=== PATIENT | female | born 1970 | race Caucasian/White ===

== ENCOUNTER → 2019-02-05 | Outpatient (CLI) | payer BC ==
[~2019-02-05] MED LIST: CARVEDILOL6.25 MG PO; CATAPRES-TTS 31 EACH TRANSDERM; CIPRO500 MG PO; CIPROFLOXACIN500 M1 PO; COREG6.25 MG PO; CYMBALTA60 MG PO; EFFEXOR75 MG PO; ESTRADIOL 1 MG T1 M1 PO; FLEXERIL PO; FLOMAX0.4 MG PO; HYDROCHLOROTHIA25 M2 PO; LISINOPRIL20 MG PO; NAPROSYN500 MG PO; NEXIUM40 MG PO; NORCO 5-325 TA1 EAC1 PO; NORCO 5-325 TA1 EACH PO; NORVASC2.5 MG PO; PERCOCET 5-3251 EACH PO; PHENAZOPYRIDIN200 M2 PO; TAMSULOSIN HCL0.4 MG PO; XANAX 0.25 MG0.25 MG PO; ZESTORETIC 20-1 EAC3 PO; ZOFRAN ODT4 MG PO
== END ==
LOC: M.RAD 14:56
DX: Z12.31 Encounter for screening mammogram for malignant neoplasm of breast (principal)

== ENCOUNTER 2019-12-14 05:45 | Inpatient (IN) | payer BC ==
[~2019-12-14] VITALS: Ht 162.6 cm; Wt 98.9 kg
--- NOTE | ~2019-12-14 | OP ---
[address] [address] OPERATIVE REPORT Name: DARLENE MONIQUE Room: [address] IN M.R.#: [id number] Admission: 12/14/19 Attend Phys: Dell Felipe MD Discharge: Date of : 68 Report #: [id number] THIS REPORT FOR: //name// cc: Mirella Anderson Maggie M. DO THIS REPORT FOR: //name// CC: Dell Anderson DATE OF SERVICE: 12/15/2019 UROLOGY OPERATIVE NOTE PREOPERATIVE DIAGNOSIS: Left nephrolithiasis. POSTOPERATIVE DIAGNOSIS: Left nephrolithiasis. PROCEDURES PERFORMED: 1. Cystoscopy. 2. Left retrograde pyelogram. 3. Left ureteroscopy with laser lithotripsy and stone basket extraction. 4. Left ureteral stent placement. STAFF: Evgeny Martinez MD COMPLICATIONS: None. DRAINS: One 6 x 26 left ureteral stent. SPECIMENS: Left ureteral stone. ESTIMATED BLOOD LOSS: None. INDICATIONS FOR PROCEDURE: The patient is a 49-year-old female with a history of nephrocalcinosis and ureteral stones. She presented to [facility] yesterday with left-sided flank pain, found to have approximately 6 mm left UVJ stone with proximal hydronephrosis. After thorough discussion, decision was made to proceed with ureteroscopy. DESCRIPTION OF PROCEDURE: On 12/15/2019, after consent was obtained, the patient was taken to the operating room and placed in supine position. She was then placed under general anesthesia. She received preoperative IV Rocephin for antibiotic coverage. She was then placed in dorsal lithotomy and her genitals were prepped and draped in normal sterile fashion. We began the procedure by inserting a 22.5-Brazilian cystoscope transurethrally without [place] [address] OPERATIVE REPORT Name: DARLENE MONIQUE Room: [address] IN [facility]#: [id number] Admission: 12/14/19 Attend Phys: Dell Felipe MD Discharge: Date of : 68 Report #: [id number] in the bladder, I identified the left ureteral orifice, which was then cannulated with a Sensor wire. This wire was passed up the upper pole under fluoroscopic guidance. I then went through the cystoscope and inserted the semirigid ureteroscope. I was able to easily pass this up alongside the sensor wire into the distal ureter where I identified the stone. A 365 micron laser fiber was utilized to break up into four smaller fragments. A 1.9 nitinol basket was utilized to evacuate the ureter of all stone burden. I made one final pass of the ureteroscope up to the level of the UPJ. There was no evidence of any further stone burden and/or injury. At this point, I withdrew the ureteroscope. I placed a 5-Brazilian open-ended stent over the sensor wire. Retrograde pyelogram demonstrated a mildly dilated collecting system without extravasation. Sensor wire was then replaced. I selected a 6 x 26 stent which was passed up the upper pole under fluoroscopic guidance, had a good coil in the urinary bladder under direct visual guidance. The patient's bladder was emptied. She was awakened from anesthesia. By: [id number] Martinez MD /bettye
[2019-12-14 05:55] VITALS: BP 225/119
[2019-12-14 06:22] LABS: URINE BILIRUBIN NEGATIVE (Negative); URINE BLOOD TRACE (Negative); URINE CLARITY CLEAR; URINE COLOR YELLOW; URINE GLUCOSE-RANDOM NEGATIVE (Negative); URINE KETONES NEGATIVE (Negative); URINE LEUKOCYTES-REFLEX 1+ (Negative); URINE NITRITE-REFLEX NEGATIVE (Negative); URINE PROTEIN NEGATIVE (Negative); URINE UROBILINOGEN 0.2 E.U./dl (0.2-1.0)
[2019-12-14 06:45] LABS: CASTS None Seen /LPF (None Seen); CRYSTALS None Seen /LPF (None Seen); SQUAMOUS 0-3 Few /LPF (0-3); URINE RBC 0-2 Rare /HPF (0-2); URINE WBC-REFLEX 0-5 Rare /HPF (0-5)
[2019-12-14 07:03] LABS: HEMATOCRIT 38.2 % (37.0-47.0); HEMOGLOBIN 13.2 gm/dL (12.0-15.0); MCH 30.5 pg (26.0-34.0); MCHC 34.6 g/dL (28.0-37.0); MPV 7.5 fl. (7.2-11.1); NUCLEATED RBCS 0 /100WBC; PLATELET COUNT* 286 thou/uL (150-400); RBC 4.34 mil/uL (4.20-5.00); RDW-CV 13.1 % (10.5-14.5); WBC 8.9 thou/uL (4.0-11.0)
[2019-12-14 07:13] LABS: CALCIUM 9.2 mg/dL (8.5-10.1); CREATININE 1.1 mg/dL (0.6-1.3); POTASSIUM 4.5 mmol/L (3.5-5.1)
[2019-12-14 07:18] LABS: ALBUMIN 3.4 g/dL (3.4-5.0); TOTAL BILIRUBIN 0.4 mg/dL (<0.1-1.0)
[2019-12-14 07:29] LABS: ABSOLUTE LYMPHOCYTES 0.6 thou/uL (0.8-5.3); ABSOLUTE MONOCYTES 0.1 thou/uL (0.0-1.2); ABSOLUTE NEUTROPHILS 8.2 thou/uL (1.6-8.1); PLATELET ESTIMATE ADEQUATE
[2019-12-14 10:32] VITALS: BP 166/103
[2019-12-14 10:40] VITALS: BP 158/89
--- NOTE | 2019-12-14 17:20 | NUR ---
ASSUMED CARE ODF PATIENT AT APPROX 0730. ALERT AND ORIENTED X4. ASSESSMENT COMPLETED AND CHARTED. VSS ON ROOM AIR. NO COMPLAINTS OF PAIN OR NAUSEA THIS SHIFT. FLUIDS INFUSED ORDERED. TYLENOL GIVEN FOR LOW GRADE TEMP. STRAINING URINE TO SEE IF PATIENT PASSES STONE. PATIENT UP AD GARETT IN THE ROOM. CALL LIGHT WITHIN REACH. HOURLY ROUNDS COMPLETED. WILL CONTINUE WITH PLAN OF CARE.
[2019-12-14 19:45] VITALS: BP 104/62
[2019-12-15 03:53] LABS: CALCIUM 7.3 mg/dL (8.5-10.1); CREATININE 1.2 mg/dL (0.6-1.3); POTASSIUM 3.7 mmol/L (3.5-5.1)
[2019-12-15 03:56] LABS: HEMATOCRIT 31.5 % (37.0-47.0); MCH 30.2 pg (26.0-34.0); MCHC 34.5 g/dL (28.0-37.0); MCV 87.4 fL (80.0-100.0); MPV 8.2 fl. (7.2-11.1); NUCLEATED RBCS 0 /100WBC; PLATELET COUNT* 262 thou/uL (150-400); RDW-CV 13.6 % (10.5-14.5); WBC 17.9 thou/uL (4.0-11.0)
[2019-12-15 04:28] LABS: HEMOGLOBIN 10.9 gm/dL (12.0-15.0)
--- NOTE | 2019-12-15 04:36 | NUR ---
ASSUMED CARE OF PT 12/14/19 AT APPROX 1915, PT A&OX4, VSS ON ROOM AIR - PT PLACED ON 2L O2 AT APPROX 0200 D/T O2 SAT <90% DURING SLEEP, URINE BEING STRAINED FOR STONE, NO COMPLAINTS OF NAUSEA THIS SHIFT, PT REPORTING MILD TO MOD PAIN - PAIN MEDS REFUSED, PT NPO SINCE MIDNIGHT. ASSESSMENTS AND HOURLY ROUNDINGS COMPLETED. WILL CONTINUE TO MONITOR.
[2019-12-15 06:48] VITALS: BP 104/62
[2019-12-15 07:04] VITALS: BP 146/87
[2019-12-15 07:26] LABS: ABSOLUTE EOSINOPHILS 0.9 thou/uL (0.0-0.7); ABSOLUTE MONOCYTES 1.3 thou/uL (0.0-1.2); ABSOLUTE NEUTROPHILS 13.8 thou/uL (1.6-8.1); PLATELET ESTIMATE ADEQUATE
[2019-12-15 07:30] VITALS: BP 172/97
[2019-12-15 12:45] VITALS: BP 126/84
[2019-12-15 16:50] VITALS: BP 133/84
--- NOTE | 2019-12-15 18:52 | NUR ---
ASSUMED CARE OF PATIENT AT APPROX 0730. ALERT AND ORIENTED X4. ASSESSMENT COMPLETED AND CHARTED. VSS ON ROOM AIR. PATIENT TO PACU AT 0730 AND RETURNED AT 0943. PATIENT REMAINED ALERT AND ORIENTED. VS REMAIN STABLE ON ROOM AIR. PATIENT FEBRILE, ADDRESSED WITH TYLENOL AND REMAINED AFEBRILE THIS SHIFT. PAIN MANAGED WITH ORAL NORCO. FLUIDS INFUSED ORDERED. PATIENT UP AD GARETT IN THE ROOM. CALL LIGHT WITHIN REACH. HOURLY ROUNDS COMPLETED. WILL CONTINUE WITH PLAN OF CARE.
[2019-12-15 19:52] VITALS: BP 140/93
[2019-12-16 03:15] LABS: ALBUMIN 2.1 g/dL (3.4-5.0); CALCIUM 7.6 mg/dL (8.5-10.1); CREATININE 1.1 mg/dL (0.6-1.3); POTASSIUM 4.2 mmol/L (3.5-5.1); TOTAL BILIRUBIN 0.1 mg/dL (<0.1-1.0); TOTAL PROTEIN 6.3 g/dL (6.4-8.2)
[2019-12-16 03:30] LABS: ABSOLUTE BASOPHILS 0.1 thou/uL (0.0-0.2); ABSOLUTE LYMPHOCYTES 1.3 thou/uL (0.8-5.3); ABSOLUTE MONOCYTES 0.9 thou/uL (0.0-1.2); ABSOLUTE NEUTROPHILS 10.7 thou/uL (1.6-8.1); BASOPHILS 0.5 %; EOSINOPHILS 0.1 %; HEMATOCRIT 30.1 % (37.0-47.0); HEMOGLOBIN 10.4 gm/dL (12.0-15.0); LYMPHOCYTES 10.3 %; MCH 30.4 pg (26.0-34.0); MCHC 34.5 g/dL (28.0-37.0); MONOCYTES 7.3 %; MPV 8.5 fl. (7.2-11.1); NUCLEATED RBCS 0 /100WBC; PLATELET COUNT* 236 thou/uL (150-400); POLYS 81.8 %; RBC 3.42 mil/uL (4.20-5.00); RDW-CV 13.7 % (10.5-14.5); WBC 13.1 thou/uL (4.0-11.0)
--- NOTE | 2019-12-16 05:40 | NUR ---
ASSUMED CARE OF PT 12/15/19 AT APPROX 1930. PT A&OX4, PT ON 2L O2 NC, PT UP AD GARETT, IV FLUIDS INFUSING ORDERED. ASSESSMENTS AND HOURLY ROUNDINGS COMPLETED, WILL CONTINUE TO MONITOR.
[2019-12-16 08:14] VITALS: BP 154/111
[2019-12-16 10:00] VITALS: BP 169/112
--- NOTE | 2019-12-16 15:24 | NUR ---
Pt lives at home with and family. No anticipated dc needs at this time; dc was held due to need for further evaluation. SW/CM to remain available to assist with safe dc planning if needs arise.
[2019-12-16 16:40] VITALS: BP 147/94
--- NOTE | 2019-12-16 17:46 | NUR ---
ASSUMED CARE AT 0730. ALERT ORIENTED PLEASANT COOPERATIVE. HX OF CYSTO YESTERDAY AND KIDNEY STONE. DENIES PAIN. BP WAS ELEVATED TODAY AND AFTER SPEAKING TO PT. SHE WASNT ON HER PROPER MED HOME SPOKE WITH DR. COLVIN AND MEDS ORDERED BP WAS A LOT BETTER BY 1600 CHECK. UP ANAD ABOUT SHOWERED ETC HAS VISITORS.
[2019-12-16 19:40] VITALS: BP 170/112
[2019-12-16 22:00] VITALS: BP 147/91
--- NOTE | 2019-12-17 05:39 | NUR ---
ASSUMED CARE @ 1914-/2-MON.AWAKE IN BED.FOUND SITTING IN RECLINER @ 1939 W/E'S UP.BP @ 1939-170/112//O FRONTAL HEADACHE USUALLY IF BP HIGH.SCHEDULED HS DOSE COREG 12.5 MG GIVEN ORAL & EARLY @ 2002.TURNS SELF @ NIGHT.BP RE-CHECKED BY HEAVY FORGER @ 2200-147/91.ON HOURLY ROUNDS.HEAVY FORGER DOING ODD HOUR ROUNDS.
--- NOTE | 2019-12-17 07:35 | NUR ---
SALINE LOCK CLOTTED WHEN FLUSHED @ 0630.PATIENT DOES NOT WANT RN TO RE-START SALINE LOCK.HAS DAILY IVPB ANTIBIOTIC.WILL ASK THIS AM IF IV ANTIBIOTIC CAN BE CONVERTED TO ORAL.SALINE LOCK REMOVED.
[2019-12-17 08:06] LABS: ABSOLUTE BASOPHILS 0.2 thou/uL (0.0-0.2); ABSOLUTE EOSINOPHILS 0.4 thou/uL (0.0-0.7); ABSOLUTE LYMPHOCYTES 2.9 thou/uL (0.8-5.3); ABSOLUTE NEUTROPHILS 8.9 thou/uL (1.6-8.1); BASOPHILS 1.1 %; EOSINOPHILS 2.8 %; HEMATOCRIT 31.8 % (37.0-47.0); HEMOGLOBIN 10.7 gm/dL (12.0-15.0); LYMPHOCYTES 22.1 %; MCH 29.9 pg (26.0-34.0); MCHC 33.5 g/dL (28.0-37.0); MCV 89.2 fL (80.0-100.0); MONOCYTES 7.3 %; MPV 9.1 fl. (7.2-11.1); NUCLEATED RBCS 0 /100WBC; POLYS 66.7 %; RBC 3.56 mil/uL (4.20-5.00); RDW-CV 13.4 % (10.5-14.5); WBC 13.3 thou/uL (4.0-11.0)
[2019-12-17 08:15] LABS: ALBUMIN 2.5 g/dL (3.4-5.0); ALKALINE PHOSPHATASE 92 U/L (46-116); ANION GAP 13 mmol/L (7-16); BUN 17 mg/dL (7-18); CALCIUM 8.6 mg/dL (8.5-10.1); CHLORIDE 108 mmol/L (98-107); CO2 23 mmol/L (21-32); GLUCOSE 109 mg/dL (70-99); POTASSIUM 4.2 mmol/L (3.5-5.1); SGOT 16 U/L (15-37); SGPT 19 U/L (30-65); SODIUM 144 mmol/L (136-145); TOTAL PROTEIN 6.3 g/dL (6.4-8.2)
[2019-12-17 08:17] LABS: PLATELET COUNT* 319 thou/uL (150-400); TOTAL BILIRUBIN < 0.1 mg/dL (<0.1-1.0)
[2019-12-17 09:05] VITALS: BP 161/98
[2019-12-17] MEDS ORDERED: CIPRO500 M1 PO (11:27)
[2019-12-17] MEDS ORDERED: PYRIDIUM200 MG PO (11:28)
[2019-12-17] MEDS ORDERED: OXYBUTYNIN 5 MG5 M2 PO (11:29)
[2019-12-17] MEDS ORDERED: TAMSULOSIN HCL0.4 MG PO (11:30)
[2019-12-17 11:32] VITALS: BP 161/98
--- NOTE | 2019-12-17 14:09 | NUR ---
ASSUMED CARE OF PATIENT AT APPROX 0730. ALERT AND ORIENTED X4. ASSESSMENT COMPLETED AND CHARTED. VSS ON ROOM AIR. COMPLAINT OF HEADACHE ADDRESSED WITH TYLENOL. NO OTHER COMPLAINTS. PATIENT DISCHARGED AT 1320 WITH ALL PERSONAL BELONGINGS, PRESCRIPTIONS AND DISCHARGE INFORMATION.
== END 2019-12-17 13:20 | disposition home or self-care (01) | DRG 853 ==
LOC: M.ERS 05:45 → M.TBA-ER 08:32 → M.ORTHSURG 08:32
PROVIDERS: Personal Emergency Response Attendant; ADMIT Internal Medicine
PROC: 0T778DZ Dilation of Left Ureter with Intraluminal Device, Via Natural or Artificial Opening Endoscopic (ICD-10-PCS; principal; 2019-12-15)
PROC: BT1F1ZZ Fluoroscopy of Left Kidney, Ureter and Bladder using Low Osmolar Contrast (ICD-10-PCS; principal; 2019-12-15)
PROC: 0TC78ZZ Extirpation of Matter from Left Ureter, Via Natural or Artificial Opening Endoscopic (ICD-10-PCS; principal; 2019-12-15)
DX: A41.9 Sepsis, unspecified organism (principal); G92 Toxic encephalopathy; N13.6 Pyonephrosis; E66.9 Obesity, unspecified; I10 Essential (primary) hypertension; F32.9 Major depressive disorder, single episode, unspecified; T40.605A Adverse effect of unspecified narcotics, initial encounter; Z90.710 Acquired absence of both cervix and uterus; Z79.891 Long term (current) use of opiate analgesic; Z79.899 Other long term (current) drug therapy; Z90.49 Acquired absence of other specified parts of digestive tract; Z87.442 Personal history of urinary calculi; Z88.2 Allergy status to sulfonamides; Z68.37 Body mass index [BMI] 37.0-37.9, adult; Y92.89 Other specified places as the place of occurrence of the external cause

== ENCOUNTER 2019-12-23 14:09 | Inpatient (IN) | payer BC ==
[~2019-12-23] VITALS: Ht 162.6 cm; Wt 98.4 kg
[~2019-12-23 14:09] MED LIST changes: +CIPRO500 M1 PO; +OXYBUTYNIN 5 MG5 M2 PO; +PYRIDIUM200 MG PO
[2019-12-23 14:14] VITALS: BP 109/72
[2019-12-23 15:02] LABS: URINE CLARITY CLEAR; URINE COLOR ORANGE
[2019-12-23 15:03] LABS: MUCUS None Seen strn/LPF (None Seen); SQUAMOUS >10 Many /LPF (0-3); URINE WBC-REFLEX 6-15 Few /HPF (0-5)
[2019-12-23 15:04] LABS: BACTERIA-REFLEX 1-9 Few /HPF (None Seen); CRYSTALS None Seen /LPF (None Seen); HYALINE CASTS 0-3 Few /LPF (None Seen); URINE RBC 0-2 Rare /HPF (0-2)
[2019-12-23 15:23] LABS: ABSOLUTE BASOPHILS 0.1 thou/uL (0.0-0.2); ABSOLUTE EOSINOPHILS 0.3 thou/uL (0.0-0.7); ABSOLUTE LYMPHOCYTES 3.7 thou/uL (0.8-5.3); ABSOLUTE MONOCYTES 0.8 thou/uL (0.0-1.2); ABSOLUTE NEUTROPHILS 6.2 thou/uL (1.6-8.1); BASOPHILS 1.2 %; HEMATOCRIT 36.7 % (37.0-47.0); HEMOGLOBIN 12.7 gm/dL (12.0-15.0); LYMPHOCYTES 33.1 %; MCH 30.4 pg (26.0-34.0); MCHC 34.7 g/dL (28.0-37.0); MCV 87.5 fL (80.0-100.0); MONOCYTES 7.2 %; MPV 7.3 fl. (7.2-11.1); NUCLEATED RBCS 0 /100WBC; PLATELET COUNT* 428 thou/uL (150-400); POLYS 55.5 %; RBC 4.19 mil/uL (4.20-5.00); RDW-CV 13.4 % (10.5-14.5); WBC 11.2 thou/uL (4.0-11.0)
[2019-12-23 15:32] LABS: CALCIUM 9.1 mg/dL (8.5-10.1); CREATININE 1.5 mg/dL (0.6-1.3); POTASSIUM 3.7 mmol/L (3.5-5.1)
[2019-12-23 15:42] LABS: ALBUMIN 3.1 g/dL (3.4-5.0); TOTAL BILIRUBIN 0.3 mg/dL (<0.1-1.0); TOTAL PROTEIN 7.8 g/dL (6.4-8.2)
[2019-12-23 19:50] VITALS: BP 118/65
[2019-12-23 19:55] VITALS: BP 126/69
[2019-12-24] VITALS: BP 108/69
--- NOTE | 2019-12-24 02:14 | NUR ---
ASSUMED CARE OF PT AT 1955 FROM THE ER. PT IS ALERT AND ORIENTED. VSS. PERRLA. PT DENIES PAIN. PT IS IN SINUS RYTHM ON THE TELEMETRY. PT IS RESTING COMFORTABLY IN BED. RESPIRATIONS ARE EVEN AND NONLABORED. WILL CONTINUE TO MONITOR PT.
[2019-12-24 04:19] VITALS: BP 118/69
[2019-12-24 05:14] LABS: ABSOLUTE BASOPHILS 0.1 thou/uL (0.0-0.2); ABSOLUTE EOSINOPHILS 0.3 thou/uL (0.0-0.7); ABSOLUTE LYMPHOCYTES 3.3 thou/uL (0.8-5.3); ABSOLUTE MONOCYTES 0.6 thou/uL (0.0-1.2); ABSOLUTE NEUTROPHILS 5.2 thou/uL (1.6-8.1); BASOPHILS 0.9 %; HEMATOCRIT 34.2 % (37.0-47.0); HEMOGLOBIN 11.9 gm/dL (12.0-15.0); MCH 30.3 pg (26.0-34.0); MCHC 34.8 g/dL (28.0-37.0); MONOCYTES 6.6 %; MPV 7.1 fl. (7.2-11.1); NUCLEATED RBCS 0 /100WBC; PLATELET COUNT* 397 thou/uL (150-400); POLYS 54.5 %; RBC 3.93 mil/uL (4.20-5.00); RDW-CV 13.1 % (10.5-14.5); WBC 9.5 thou/uL (4.0-11.0)
[2019-12-24 05:28] LABS: CALCIUM 8.5 mg/dL (8.5-10.1); CREATININE 1.2 mg/dL (0.6-1.3); POTASSIUM 3.8 mmol/L (3.5-5.1)
[2019-12-24 08:00] VITALS: BP 108/69
--- NOTE | 2019-12-24 10:56 | EKG ---
[place] [address] ELECTROCARDIOGRAM REPORT Name: DARLENE MONIQUE Room: [address] ADM IN M.R.#: [id number] Admission: 12/23/19 Attend Phys: Dell Felipe, Discharge: Date of : 68 Date of Service: 12/23/19 1456 Report #: [id number] THIS REPORT FOR: //name// [facility] ED Test Date: 2019-12-23 Test Time: 14:56:03 Pat Name: DARLENE MONIQUE Department: Room: [facility] Gender: F Online Marketing Specialist: AUDRA : 1970 Requested By: Cherry Mclaughlin Order Number: [id number] MD: Layton Clemens Measurements Intervals [place] Rate: 85 P: 40 ID: [id number] QRS: 0 QRSD: 104 T: 12 QT: 407 QTc: 484 Interpretive Statements Sinus rhythm Left ventricular hypertrophy, by voltage Borderline prolonged QT interval Baseline wander in lead(s) V6 Compared to ECG 09/23/2015 12:36:45 No significant changes Electronically Signed On 12-24-2019 10:55:25 CDT by Layton Clemens [email or web address] <ELECTRONICALLY SIGNED> By: Layton Clemens MD, FACC 12/24/19 1055 1456 1456 Layton Clemens MD, FACC /EPI
[2019-12-24 12:19] VITALS: BP 145/79
--- NOTE | 2019-12-24 14:05 | NUR ---
ASSUMED PT CARE AT 0800, AOX4, UP AD GARETT, O2 SAT 90'S RA. TRACING SR ON TELE, NOW MED SURG STATUS. UROLOGY CONSULT FOLLOW UP, PT ADVANCED TO REGULAR DIET. BP SOFT THIS AM, IVF INFUSSING ORDERED. PT DENIES PAIN. HOURLY ROUNDING, CALL LIGHT WITHIN REACH, WILL CONTINUE TO MONITOR.
--- NOTE | 2019-12-24 16:05 | NUR ---
Pt is A&O. Resides at home with her . Active and independent. No DME. No hx of HH or SNF. Goal is home at ga. Urology following.
[2019-12-24 16:12] VITALS: BP 116/74
[2019-12-24 19:40] VITALS: BP 140/91
[2019-12-25 00:32] VITALS: BP 148/99
--- NOTE | 2019-12-25 05:08 | NUR ---
ASSUMED CARE OF PT AT 1900. PT IS ALERT AND ORIENTED. VSS. PERRLA. NO COMPLAINTS OF PAIN. PT IS UP AD GARETT. STEADY GAIT. PT IS SLEEPING COMFORTABLY IN BED. RESPIRATIONS ARE EVEN AND NONLABORED. WILL CONTINUE TO MONITOR PT.
[2019-12-25 05:34] LABS: ABSOLUTE BASOPHILS 0.1 thou/uL (0.0-0.2); ABSOLUTE EOSINOPHILS 0.3 thou/uL (0.0-0.7); ABSOLUTE LYMPHOCYTES 3.4 thou/uL (0.8-5.3); ABSOLUTE MONOCYTES 0.6 thou/uL (0.0-1.2); ABSOLUTE NEUTROPHILS 5.3 thou/uL (1.6-8.1); BASOPHILS 1.3 %; EOSINOPHILS 3.2 %; HEMATOCRIT 34.7 % (37.0-47.0); HEMOGLOBIN 11.9 gm/dL (12.0-15.0); MCH 30.1 pg (26.0-34.0); MCHC 34.4 g/dL (28.0-37.0); MCV 87.3 fL (80.0-100.0); MPV 7.2 fl. (7.2-11.1); NUCLEATED RBCS 0 /100WBC; PLATELET COUNT* 416 thou/uL (150-400); POLYS 54.5 %; RBC 3.97 mil/uL (4.20-5.00); RDW-CV 13.2 % (10.5-14.5); WBC 9.7 thou/uL (4.0-11.0)
[2019-12-25 05:45] LABS: CALCIUM 8.9 mg/dL (8.5-10.1); CREATININE 1.1 mg/dL (0.6-1.3); POTASSIUM 3.7 mmol/L (3.5-5.1)
[2019-12-25 08:00] VITALS: BP 151/87
[2019-12-25] MEDS ORDERED: ZESTORETIC 20-1 EAC3 PO (09:21)
[2019-12-25] MEDS ORDERED: CEFUROXIME500 MG PO (09:25)
--- NOTE | 2019-12-25 10:00 | NUR ---
ASSUMED PT CARE AT 0800, AOX4, UP AD GARETT, O2 SAT 90'S RA. MED SURG. PT FOR DISCHARGE. VSS, AM ASSESSMENT CHARTED, MEDS GIVEN PER MAR, CALL LIGHT WITHIN REACH, WILL CONTINUE TO MONITOR.
[2019-12-25 10:49] VITALS: BP 151/87
--- NOTE | 2019-12-25 11:28 | NUR ---
DISCHAERGE PLAN DISCUSSED WITH PT. MEDICATION PACKET GIVEN. IV REMOVED. REMINDED TO FOLLOW UP PCP, UROLOGY IN 2 WEEKS. ALL BELONGINGS PACKED AND CHECKED. LEFT THE UNIT 1119 VIA WHEELCHAIR.
== END 2019-12-25 11:20 | disposition home or self-care (01) | DRG 872 ==
LOC: M.ERS 14:09 → M.2W 16:11 → M.TBA-ER 16:11 → M.2W 19:41
PROVIDERS: Physician Assistant; ADMIT Internal Medicine
DX: A41.9 Sepsis, unspecified organism (principal); N17.9 Acute kidney failure, unspecified; N39.0 Urinary tract infection, site not specified; I10 Essential (primary) hypertension; F32.9 Major depressive disorder, single episode, unspecified; I95.9 Hypotension, unspecified; N13.9 Obstructive and reflux uropathy, unspecified; R09.02 Hypoxemia; Z90.49 Acquired absence of other specified parts of digestive tract; Z87.442 Personal history of urinary calculi; Z90.710 Acquired absence of both cervix and uterus; Z88.2 Allergy status to sulfonamides; Z79.899 Other long term (current) drug therapy

== ENCOUNTER 2020-01-04 03:42 | Inpatient (IN) | payer BC ==
[~2020-01-04] VITALS: Ht 162.6 cm; Wt 97.1 kg
[~2020-01-04 03:42] MED LIST changes: +CEFUROXIME500 MG PO
[2020-01-04 03:47] VITALS: BP 165/105
[2020-01-04 04:12] LABS: URINE BILIRUBIN NEGATIVE (Negative); URINE BLOOD 1+ (Negative); URINE CLARITY CLEAR; URINE COLOR YELLOW; URINE GLUCOSE-RANDOM NEGATIVE (Negative); URINE KETONES NEGATIVE (Negative); URINE LEUKOCYTES-REFLEX TRACE (Negative); URINE NITRITE-REFLEX NEGATIVE (Negative); URINE PROTEIN NEGATIVE (Negative); URINE UROBILINOGEN 0.2 E.U./dl (0.2-1.0)
[2020-01-04 04:21] LABS: ABSOLUTE BASOPHILS 0.1 thou/uL (0.0-0.2); ABSOLUTE EOSINOPHILS 0.2 thou/uL (0.0-0.7); ABSOLUTE LYMPHOCYTES 2.5 thou/uL (0.8-5.3); ABSOLUTE NEUTROPHILS 6.2 thou/uL (1.6-8.1); BASOPHILS 1.2 %; EOSINOPHILS 2.5 %; HEMATOCRIT 35.1 % (37.0-47.0); HEMOGLOBIN 12.2 gm/dL (12.0-15.0); LYMPHOCYTES 24.7 %; MCHC 34.8 g/dL (28.0-37.0); MCV 86.1 fL (80.0-100.0); MONOCYTES 10.2 %; MPV 7.5 fl. (7.2-11.1); NUCLEATED RBCS 0 /100WBC; PLATELET COUNT* 423 thou/uL (150-400); POLYS 61.4 %; RBC 4.08 mil/uL (4.20-5.00); RDW-CV 13.1 % (10.5-14.5)
[2020-01-04 04:28] LABS: CALCIUM 9.2 mg/dL (8.5-10.1); CREATININE 1.5 mg/dL (0.6-1.3); POTASSIUM 3.9 mmol/L (3.5-5.1)
[2020-01-04 04:43] LABS: CASTS None Seen /LPF (None Seen); CRYSTALS None Seen /LPF (None Seen); MUCUS 0-3 Light strn/LPF (None Seen); SQUAMOUS 0-3 Few /LPF (0-3); TRANSITIONAL EPITHEL CELL 0-3 Few /LPF (None Seen); URINE RBC 3-10 Few /HPF (0-2); URINE WBC-REFLEX 6-15 Few /HPF (0-5); WBC CLUMPS Few (None Seen)
[2020-01-04 06:21] VITALS: BP 145/98
[2020-01-04 08:00] VITALS: BP 115/75
[2020-01-04 16:18] VITALS: BP 114/75
--- NOTE | 2020-01-04 20:18 | NUR ---
Remains A&OX4. Respirations even and unlabored on room air. Denies pain. Pain meds given PRN per MD order. IVFs infusing without complications. VSS. Continues on IV Atbx without s/sx of adverse reactions. Lithotripsy scheduled for 01/04 at 9am. Will be NPO after midnight tonight. Urine strained with no stones noted this shift. Call nogueira within reach. Nsg will continue to assess.
[2020-01-05] VITALS: BP 117/78
[2020-01-05 03:46] VITALS: BP 117/78
--- NOTE | 2020-01-05 04:43 | NUR ---
PATIENT SLEPT WELL DURING THIS SHIFT. PT UP AD GARETT TO BATHROOM. PT REQUESTED PAIN MEDICATION X1 AND RECEIVED HYDROCODONE 1 TAB. PT ABLE TO RETURN TO SLEEP AFTERWARDS. PT HAS BEEN NPO. PLANS FOR LITHOTRIPSY THIS AM. FREQUENTLY USED ITEMS AND CALL LIGHT WITHIN REACH. SIDERAILS UPX2. WILL CONTINUE TO MONITOR.
[2020-01-05 15:00] VITALS: BP 131/86
--- NOTE | 2020-01-05 20:27 | NUR ---
REMAINS A&OX4. RESPIRATIONS EVEN AND UNLOABORED ON ROOM AIR. WEANED FROM O2 AFTER PROCEDURE. DENIES PAIN. MEDICATED WITH PRN PAIN MED PER MD ORDER. VOIDING WITHOUT DIFFICULTIES. MINIMAL CRUSHING STONES IN STRAINED URINE. VSS. TOLERATING REGULAR DIET. CALL GREGORY WITHIN REACH. NSG WILL CONTINUE TO ASSESS.
[2020-01-05 21:07] VITALS: BP 160/92
[2020-01-06 04:42] LABS: HEMATOCRIT 31.7 % (37.0-47.0); HEMOGLOBIN 10.8 gm/dL (12.0-15.0); MCH 29.7 pg (26.0-34.0); MCHC 34.1 g/dL (28.0-37.0); MCV 87.1 fL (80.0-100.0); MPV 8.2 fl. (7.2-11.1); RBC 3.64 mil/uL (4.20-5.00)
[2020-01-06 05:05] LABS: ALBUMIN 2.7 g/dL (3.4-5.0); CALCIUM 9.1 mg/dL (8.5-10.1); CREATININE 1.4 mg/dL (0.6-1.3); POTASSIUM 4.4 mmol/L (3.5-5.1); TOTAL BILIRUBIN 0.2 mg/dL (<0.1-1.0)
--- NOTE | 2020-01-06 05:43 | NUR ---
PATIENT SLEPT WELL DURING THIS SHIFT. PT UP AD GARETT IN ROOM. PT VOIDS RED URINE. PT SAID SHE HAS RT LOWER ABD PAIN WHEN VOIDING. PT GIVEN HYDROCODONE X1 DURING THIS SHIFT. PT IS SALINE LOCKED. FREQUENTLY USED ITEMS AND CALL LIGHT WITHIN REACH. SIDERAILS UPX2. WILL CONTINUE TO MONITOR.
[2020-01-06 08:15] VITALS: BP 144/86
[2020-01-06] MEDS ORDERED: LEVSIN0.125 MG PO (10:52)
--- NOTE | 2020-01-06 11:37 | NUR ---
Pt lives at home with . No needs anticipated at this time. SW to continue to follow to assist with safe dc planning if needs arise.
[2020-01-06 13:20] VITALS: BP 144/86
== END 2020-01-06 14:45 | disposition home or self-care (01) | DRG 659 ==
LOC: M.ERS 03:42 → M.TBA-ER 05:05 → M.3W 05:05
PROVIDERS: Emergency Medicine; Internal Medicine; ADMIT Family Medicine
PROC: 0T768DZ Dilation of Right Ureter with Intraluminal Device, Via Natural or Artificial Opening Endoscopic (ICD-10-PCS; principal; 2020-01-05)
PROC: BT1D1ZZ Fluoroscopy of Right Kidney, Ureter and Bladder using Low Osmolar Contrast (ICD-10-PCS; principal; 2020-01-05)
DX: N13.6 Pyonephrosis (principal); E43 Unspecified severe protein-calorie malnutrition; I10 Essential (primary) hypertension; F32.9 Major depressive disorder, single episode, unspecified; F41.9 Anxiety disorder, unspecified; K21.9 Gastro-esophageal reflux disease without esophagitis; Z90.49 Acquired absence of other specified parts of digestive tract; Z87.442 Personal history of urinary calculi; Z90.710 Acquired absence of both cervix and uterus; Z88.2 Allergy status to sulfonamides

== ENCOUNTER 2020-06-20 16:01 | Emergency (ER) | payer BC ==
[~2020-06-20] VITALS: Ht 162.6 cm; Wt 98.9 kg
[~2020-06-20 16:01] MED LIST changes: +LEVSIN0.125 MG PO
[2020-06-20 17:08] VITALS: BP 137/92
== END 2020-06-20 17:09 | disposition home or self-care (01) ==
LOC: M.ERS 16:01
DX: U07.1 COVID-19 (principal); I10 Essential (primary) hypertension; Z90.49 Acquired absence of other specified parts of digestive tract; Z98.890 Other specified postprocedural states; Z87.442 Personal history of urinary calculi; Z90.710 Acquired absence of both cervix and uterus; Z88.2 Allergy status to sulfonamides

== ENCOUNTER → 2020-09-07 | Outpatient (CLI) | payer BC | LOC: M.RAD 15:40 | PROVIDERS: ATTEND Family Medicine | DX: Z12.31 Encounter for screening mammogram for malignant neoplasm of breast (principal) ==

== ENCOUNTER 2020-12-30 22:20 | Emergency (ER) | payer BC ==
[~2020-12-30] VITALS: Ht 162.6 cm; Wt 97.1 kg
[2020-12-30] MEDS ORDERED: HYDROCHLOROTHIA25 M1 PO (22:35)
[2020-12-30 22:58] LABS: ABSOLUTE BASOPHILS 0.1 thou/uL (0.0-0.2); ABSOLUTE EOSINOPHILS 0.1 thou/uL (0.0-0.7); ABSOLUTE LYMPHOCYTES 1.8 thou/uL (0.8-5.3); ABSOLUTE MONOCYTES 0.8 thou/uL (0.0-1.2); ABSOLUTE NEUTROPHILS 6.6 thou/uL (1.6-8.1); BASOPHILS 0.7 %; EOSINOPHILS 1.5 %; HEMATOCRIT 38.3 % (37.0-47.0); HEMOGLOBIN 12.9 gm/dL (12.0-15.0); LYMPHOCYTES 18.8 %; MCH 29.8 pg (26.0-34.0); MCHC 33.7 g/dL (28.0-37.0); MCV 88.6 fL (80.0-100.0); MONOCYTES 8.8 %; MPV 7.7 fl. (7.2-11.1); NUCLEATED RBCS 0 /100WBC; PLATELET COUNT* 328 thou/uL (150-400); POLYS 70.2 %; RBC 4.33 mil/uL (4.20-5.00); RDW-CV 13.2 % (10.5-14.5); WBC 9.4 thou/uL (4.0-11.0)
[2020-12-30 22:58] LABS: URINE BILIRUBIN NEGATIVE (Negative); URINE BLOOD 3+ (Negative); URINE COLOR YELLOW; URINE GLUCOSE-RANDOM NEGATIVE (Negative); URINE KETONES NEGATIVE (Negative); URINE LEUKOCYTES-REFLEX 1+ (Negative); URINE PROTEIN TRACE (Negative); URINE UROBILINOGEN 0.2 E.U./dl (0.2-1.0)
[2020-12-30 23:00] LABS: URINE CLARITY SL CLOUDY; URINE NITRITE-REFLEX POSITIVE (Negative)
[2020-12-30 23:06] LABS: CALCIUM 10.1 mg/dL (8.5-10.1)
[2020-12-30 23:06] LABS: SQUAMOUS 0-3 Few /LPF (0-3); TRANSITIONAL EPITHEL CELL 0-3 Few /LPF (None Seen); URINE RBC >20 Many /HPF (0-2); URINE WBC-REFLEX >25 Many /HPF (0-5); WBC CLUMPS Few (None Seen)
[2020-12-30 23:07] LABS: BACTERIA-REFLEX >30 Many /HPF (None Seen); CASTS None Seen /LPF (None Seen); CRYSTALS None Seen /LPF (None Seen); MUCUS 4-6 Moderate strn/LPF (None Seen)
[2020-12-30 23:11] LABS: ALBUMIN 3.4 g/dL (3.4-5.0); TOTAL BILIRUBIN 0.4 mg/dL (<0.1-1.0)
[2020-12-31] MEDS ORDERED: ZOFRAN ODT4 MG PO (01:00)
[2020-12-31] MEDS ORDERED: NORCO5 PO (01:00)
[2020-12-31] MEDS ORDERED: FLOMAX0.4 MG PO (01:00)
[2020-12-31] MEDS ORDERED: LEVOFLOXACIN500 MG PO (01:00)
[2020-12-31 01:15] VITALS: BP 142/92
== END 2020-12-31 01:15 | disposition home or self-care (01) ==
LOC: M.ERS 22:20
PROVIDERS: Personal Emergency Response Attendant
DX: N13.2 Hydronephrosis with renal and ureteral calculous obstruction (principal); E83.59 Other disorders of calcium metabolism; I10 Essential (primary) hypertension; F32.9 Major depressive disorder, single episode, unspecified; Z87.442 Personal history of urinary calculi; Z90.49 Acquired absence of other specified parts of digestive tract; Z98.890 Other specified postprocedural states; Z90.711 Acquired absence of uterus with remaining cervical stump; Z79.899 Other long term (current) drug therapy; Z88.2 Allergy status to sulfonamides

== ENCOUNTER → 2021-04-16 | Outpatient (CLI) | payer BC ==
[~2021-04-16] MED LIST changes: +HYDROCHLOROTHIA25 M1 PO; +LEVOFLOXACIN500 MG PO; +NORCO5 PO
== END ==
LOC: M.ULTRA 09:00
PROVIDERS: ATTEND Family Medicine
DX: I66.23 Occlusion and stenosis of bilateral posterior cerebral arteries (principal)

== ENCOUNTER 2021-05-13 09:26 | Emergency (ER) | payer BC ==
[~2021-05-13] VITALS: Ht 160 cm; Wt 98.9 kg
[2021-05-13] MEDS ORDERED: LISINOPRIL-HCT1 EAC1 PO ×2 (09:32→10:46)
[2021-05-13 10:45] VITALS: BP 156/94
== END 2021-05-13 10:45 | disposition home or self-care (01) ==
LOC: M.ERS 09:26
DX: I10 Essential (primary) hypertension (principal); Z90.49 Acquired absence of other specified parts of digestive tract; Z98.890 Other specified postprocedural states; Z87.442 Personal history of urinary calculi; Z90.710 Acquired absence of both cervix and uterus; Z88.2 Allergy status to sulfonamides